=== PATIENT | female | born 1955 | race Caucasian/White ===

== ENCOUNTER → 2021-12-26 07:59 | Outpatient (CLI) | payer OTHER, SELFPAY ==
--- NOTE | 2021-12-26 | DI.RAD.S_ITS ---
PROCEDURE: FL BARIUM SWALLOW W SPEECH INDICATIONS: Dysphagia COMPARISON: None. TECHNIQUE: Examination was conducted in conjunction with speech pathology per standard protocol. In the lateral projection, filming was performed of the patient swallowing. AP projection filming may also be performed with patient swallowing. COMPARISON: FINDINGS: Function: The oral preparatory phase appears normal, with proper containment. The subsequent oral propulsive phase, pharyngeal phase, and esophageal phase of swallowing also appear normal with all proffered substances. No laryngotracheal penetration or aspiration. No pathologic vallecular pooling. Morphology: No cricopharyngeal bar is identified. No cervical esophageal webs. No Zenker's diverticulum. No strictures. IMPRESSION: Unremarkable barium swallow study. Please see separate speech pathology report for further details. Dictated by: Robert Rhodes M.D. on 12/26/2021 at 10:11 Approved by: Robert Rhodes M.D. on 12/26/2021 at 10:12
--- NOTE | 2021-12-26 13:18 | ST.SWALLOW ---
Visit Care Team Role Provider Type Nory Ponce PA-C Primary Care Provider Non-Staff Specialty: Medical Address: [address] [place] [address] [address], [place], [address] Email: Cherry Valentino MD Attending Provider Physician Referring Provider Specialty: Gastroenterology Address: [address] [place] [address] [place], [address] Email: [email or web address] Modified Barium Swallow Study [employer] Modified Barium Swallow Study Start: 12/26/21 13:03 Freq: Status: Active Protocol: Document 12/26/21 13:03 ZS (Rec: 12/26/21 13:18 ZS [id number]) Modified Barium Swallow Study Total Time Visit Start Time 08:30 Visit Stop Time 08:50 Total Visit Minutes 20 Setting Setting Outpatient Care Patient Information Identification Type Name Patient History Ella is a 66-year-old female referred for a modified barium swallow study due to repeated events where she stops breathing. These events occur throughout the day, both while she is and is not eating . Pt reported she feels like she cannot breathe, but has yet to pass out from these events. She added she had an endoscopy and a GI assessment about 2 years ago to explore the possibility of a hiatal hernia, but no hiatal hernia was found. Subjective Observations The pt arrived on time and ambulated independently. Process and procedure described and pt expressed understanding and agreed to participate in all assessment activities. Patient Positioning Position View Lat-A/P Imaging Lateral View Textures Administered Trials Presented Thin Liquid via Cup,[place] Liquid via Cup,Regular Textures Oral Phase Source: MBSIMP (TM) (C) Bolus Specific Scoring Grid Lip Closure No Impairment (WNL) Tongue Control During Bolus Hold Minimal Impairment Bolus Prep/Mastication No Impairment (WNL) Bolus Transport/Lingual Motion No Impairment (WNL) A/P Lingual Propulsion Delay No Oral Residue Minimal Impairment Residue Clearing No Impairment (WNL) Nasal Regurgitation No Additional Oral Phase Observations No anterior loss of bolus. Bolus fell to floor of mouth during tongue hold, but no posterior loss of bolus prior to a/p propulsion. A/p propulsion and mastication were timely and efficient. Minimal oral residue observed, which pt cleared with spontaneous and prompt second swallow. Pharyngeal Phase Source: MBSIMP (TM) (C) Bolus Specific Scoring Grid Delayed Initiation of Pharyngeal Swallow Yes: head of bolus in pyriforms Soft Palate Elevation No Impairment (WNL) Tongue Base Strength/Range of Motion Minimal Impairment Residue Along the Tongue Base No Laryngeal Elevation No Impairment (WNL) Anterior Hyoid Movement Mild Impairment Epiglottic Range of Motion Mild Impairment Vallecular Residue Yes Clearance of Vallecular Residue No Impairment (WNL) Laryngeal Vestibular Closure No Impairment (WNL) Pharyngeal Stripping Wave No Impairment (WNL) Pharyngeal Contraction No Impairment (WNL) Posterior Pharyngeal Wall Residue No Upper Esophageal Sphincter Opening No Impairment (WNL) Residue in the Pyriform Sinuses Yes: minimal Clearance of Residue in the Pyriform No Impairment (WNL) Sinuses Esophageal Clearance Upright Position Mild Impairment Additional Pharyngeal Phase Observations Delay in pharyngeal swallow initiation, with head of the bolus in the pyriforms. Mild impairment in hyolaryngeal excursion and epiglottic inversion, though this did not appear to impact laryngeal vestibular closure. No aspiration or penetration observed. Pt exhibited minimal -mild residue, which she cleared with a spontaneous and prompt second swallow. A/P View Textures Administered Trials Presented Thin Liquid via Cup,Barium Tablet A/P View Observations Pharyngeal Contraction No Impairment (WNL) Esophageal Function Slowed Clearing,Reverse Peristalsis Esophageal Clearance Upright Position Mild Impairment Additional Observations Bolus moved slowly through esophagus and reverse peristalsis was observed below level of PES. Residue present after swallow was complete. Barium tablet moved rapidly through esophagus to stomach with no difficulty. Clinical Impressions Findings The pt presents with swallowing WFL. Epiglottic inversion and hyolaryngeal movement were mildly impaired, though this did not impact laryngeal vestibular closure or swallow safety. Slowed clearing of bolus through esophagus with reverse peristalsis below the PES was observed. Pt reported having evaluation with GI about 2 years ago and will talk with her PCP regarding necessity of a follow-up. Speech therapy is not indicated at this time as swallow is WFL. No indications that aspiration or penetration is contributing to the sensation of not being able to breathe as all structures are moving WFL. Patient Appropriate for Therapy No Recommendations Diet Liquids Order Thin Diet Order Regular Medication Recommendation As Tolerated Treatment Plan Recommended Referrals GI Consult
== END ==
PROVIDERS: PCP Physician Assistant Medical; Referring Provider Internal Medicine Gastroenterology; Visit Provider Internal Medicine Gastroenterology
DX: R13.10 Dysphagia, unspecified (principal)
CPT/HCPCS: 74230; 92611